=== PATIENT | male | born 1990 | race African-American/Black ===

== ENCOUNTER 2018-06-27 08:14 | Emergency (ER) | payer OTHER ==
[~2018-06-27] VITALS: Ht 185.4 cm; Wt 78.0 kg
[~2018-06-27 08:14] MED LIST: PRON INH
[2018-06-27 08:20] VITALS: BP 124/67
--- NOTE | 2018-06-27 08:20 | NUR ---
PATIENT AMBULATED TO BED 11 AT THIS TIME.
--- NOTE | 2018-06-27 08:23 | NUR ---
PATIENT PRESENTS TO ED WITH THE CHIEF C/O GENERALIZED BODY PAIN AND HEADACHE STARTED COUPLE DAYS AGO. DENIES N/V. HAS WATERY DIARRHEA X4; SKIN IS PINK/WARM/DRY; AAOX4 WITH EVEN AND STEADY GAIT; PT DENIES ANY FEVER, CP, SOB, OR COUGH AT THIS TIME; PATIENT STATES PAIN OF 10/10 AT THIS TIME; VSS; PATIENT POSITIONED FOR COMFORT; HOB ELEVATED; BEDRAILS UP X2; BED DOWN. ER MD MADE AWARE OF PT STATUS.
--- NOTE | 2018-06-27 08:25 | NUR ---
PT BEING SEEN BY DR. SÁNCHEZ AT THIS TIME.
[2018-06-27] MEDS ORDERED: ONDANSETRON 4 MG ODT PO ONE (08:30)
[2018-06-27] MEDS ORDERED: KETOROLAC 60 MG/2 ML VIAL IM ONE (08:30)
--- NOTE | 2018-06-27 09:15 | NUR ---
PT APPEARS TO BE RELAXED, RESTING IN BED. VERBALIZED PAIN DECREASED TO 5/10.
--- NOTE | 2018-06-27 09:36 | NUR ---
Patient discharged with v/s stable. Written and verbal after care instructions given and explained. Patient alert, oriented and verbalized understanding of instructions. Ambulatory with steady gait. All questions addressed prior to discharge. ID band removed. Patient advised to follow up with PMD. Rx of ZOFRAN, MOTRIN, AND CIPRO given. Patient educated on indication of medication including possible reaction and side effects. Opportunity to ask questions provided and answered.
[2018-06-27 09:37] VITALS: BP 111/59
== END 2018-06-27 09:36 | disposition home or self-care (01) ==
LOC: MED 08:14
DX: R11.2 Nausea with vomiting, unspecified (principal); R19.7 Diarrhea, unspecified; M79.10 Myalgia, unspecified site; J45.909 Unspecified asthma, uncomplicated; F17.200 Nicotine dependence, unspecified, uncomplicated; Z91.018 Allergy to other foods; Z79.899 Other long term (current) drug therapy
CPT/HCPCS: 96372; 99283; J1885; Q0162

== ENCOUNTER 2019-07-22 06:54 | Emergency (ER) | payer OTHER ==
[~2019-07-22] VITALS: Ht 185.4 cm; Wt 80.7 kg
[2019-07-22 07:00] VITALS: BP 132/64
--- NOTE | 2019-07-22 07:06 | NUR ---
PT AMBULATED BED #9
--- NOTE | 2019-07-22 07:15 | NUR ---
28 y/o m presents to ER c/o abdominal pain. Pt seen at urgent care yesterday around 1800 and referred to ER to r/o appendicitis. A&O x4. Respirations even and unlabored. Pain is located in epigastric area. Current pain level 5/10, constant, cramping pain. Bowel sounds active x 4 quadrants. Last BM 07/21/18. Pt also c/o bilateral arm pain. Denies any trauma or injury. Awaiting for ERMD to evaluate pt. NKA No med hx
--- NOTE | 2019-07-22 07:56 | NUR ---
Pt ambulated to restroom to provide urine sample.
--- NOTE | 2019-07-22 08:02 | NUR ---
Urine sample sent to lab.
[2019-07-22 08:20] LABS: APPEARANCE,URINE CLOUDY (CLEAR); BILIRUBIN,URINE 1+ (NEGATIVE); BLOOD, URINE 3+ (NEGATIVE); COLOR,URINE YELLOW (YELLOW); LEUKOCYTE ESTERASE ,URINE 2+ (NEGATIVE); NITRITE, URINE NEGATIVE (NEGATIVE); UGLUCOSE NEGATIVE (NEGATIVE)
[2019-07-22 08:40] LABS: RBC,URINE 11-20 (MOD) /HPF (0-5)
[2019-07-22 08:41] LABS: WBC,URINE 80-100 /HPF (0-5)
--- NOTE | 2019-07-22 09:00 | NUR ---
Pt resting in bed with eyes open. Awake and Alert. Respirations even and unlabored.
[2019-07-22] MEDS: AZITHROMYCIN 1,000 MG in DEXTROSE 5% 500 ML IV ONE (09:15)
[2019-07-22] MEDS ORDERED: AZITHROMYCIN 500 MG INJ VIAL IV ONE (09:35)
[2019-07-22] MEDS ORDERED: cefTRIAXone 2,000 MG VIAL ONE (09:35)
[2019-07-22] MEDS: NACL 0.9% 1,000 ML IV ONE (09:48)
[2019-07-22] MEDS: cefTRIAXone 2,000 MG in DEXTROSE 5% 100 ML IV ONE (09:54)
--- NOTE | 2019-07-22 10:20 | NUR ---
Pt resting in bed. A&O x4. Vital Signs Stable. Will continue to monitor.
--- NOTE | 2019-07-22 11:15 | NUR ---
PT REFUSING IV AZITHROMYCIN. PT REQUESTING PO PILLS INSTEAD. DR. JONES MADE AWARE.
[2019-07-22] MEDS: AZITHROMYCIN 250 MG TAB PO ONE (11:54)
[2019-07-22 12:19] VITALS: BP 102/48
--- NOTE | 2019-07-22 12:19 | NUR ---
Patient discharged by Dr. Mccarthy with v/s stable. Written and verbal after care instructions given and explained. Patient alert, oriented and verbalized understanding of instructions. Ambulatory with steady gait. All questions addressed prior to discharge. ID band removed. Patient advised to follow up with PMD. Rx of Levaquin 500mg was given. Patient educated on indication of medication including possible reaction and side effects. Opportunity to ask questions provided and answered.
[2019-07-24 06:07] LABS: CHLAMYDIA TRACHOMATIS AMP DNA Negative (Negative)
== END 2019-07-22 12:20 | disposition home or self-care (01) ==
LOC: MED 06:54
DX: N39.0 Urinary tract infection, site not specified (principal); J45.909 Unspecified asthma, uncomplicated; Z79.51 Long term (current) use of inhaled steroids
CPT/HCPCS: 36415; 81001; 87086; 87186; 87491; 96365; 99283; J0456; J0696; J7030; J7060

== ENCOUNTER 2019-11-10 10:41 | Emergency (ER) | payer OTHER ==
[~2019-11-10] VITALS: Ht 195.6 cm; Wt 86.2 kg
[2019-11-10 10:47] VITALS: BP 115/73
--- NOTE | 2019-11-10 10:53 | NUR ---
Patient ambulated to bed 6. RN evaluating patient at bedside.
--- NOTE | 2019-11-10 10:57 | NUR ---
28 Y/O MALE FROM HOME C/O ABSCESS TO COCCYX X 6 DAYS. PT STATES HE HAD ABSCESS DRAINED FROM COCCYX LAST YEAR. INCREASED PAIN WHEN SITTING. 5/10 CONSTANT ACHING PAIN. NOTICABLE ABSCESS, NO OPEN WOUND. STATES HE TOOK IBUPROFEN AT 0900 WITH MINIMAL PAIN RELIEF. PT LAYING IN PRONE POSITION FOR COMFORT. MEDHX: ASTHMA ALLERGIES: NKA
--- NOTE | 2019-11-10 11:09 | NUR ---
Dr. Orantes is evaluating the patient at bedside.
--- NOTE | 2019-11-10 11:09 | NUR ---
DR SÁNCHEZ EXAMINING PT
[2019-11-10] MEDS ORDERED: LIDOCAINE MPF 1% 10 MG/ML VIAL INJ ONE (11:15)
--- NOTE | 2019-11-10 11:20 | NUR ---
LIDOCAINE PLACED AT BEDSIDE FOR DR SÁNCHEZ
--- NOTE | 2019-11-10 11:45 | NUR ---
Dr. Orantes at bedside for incision and drainage of abscess.
--- NOTE | 2019-11-10 12:01 | NUR ---
PT STATES DECREASE IN PAIN AFTER DRAINAGE
[2019-11-10 12:15] VITALS: BP 117/77
--- NOTE | 2019-11-10 12:16 | NUR ---
Patient discharged with v/s stable. Written and verbal after care instructions given and explained. Patient alert, oriented and verbalized understanding of instructions. Ambulatory with steady gait. All questions addressed prior to discharge. ID band removed. Patient advised to follow up with PMD. Rx of MOTRIN, KEFLEX, NORCO given. Patient educated on indication of medication including possible reaction and side effects. Opportunity to ask questions provided and answered.
== END 2019-11-10 12:16 | disposition home or self-care (01) ==
LOC: MED 10:41
DX: L02.31 Cutaneous abscess of buttock (principal); F17.210 Nicotine dependence, cigarettes, uncomplicated; J45.909 Unspecified asthma, uncomplicated; Z79.899 Other long term (current) drug therapy
CPT/HCPCS: 10060; 99283; J2001

== ENCOUNTER 2019-11-18 09:15 | Emergency (ER) | payer OTHER ==
[~2019-11-18] VITALS: Ht 188 cm; Wt 81.6 kg
[2019-11-18 09:24] VITALS: BP 137/87
--- NOTE | 2019-11-18 09:27 | NUR ---
Patient ambulated to bed 2. RN evaluating patient at bedside.
--- NOTE | 2019-11-18 10:00 | NUR ---
RECHECK FOR PILONIDAL CYST DRAINAGE 11/09/09. PT STATES STILL TAKING ANTIBIOTICS KEFLEX. SITE APPEARS TO HAVE SIGNIFICANT DRAINAGE, SITE IS PACKED WITH STRIPS. PT DENIES PAIN UNLESS SITE IS TOUCHED. HR 115 UPON TRIAGE. PT ALERT AND AWAKE, AMBULATORY. HX: NONE RX: NONE
--- NOTE | 2019-11-18 10:01 | NUR ---
ABSESS WOUND CHECK TO PTS LOWER BACK, INNER BUTTOCK REGION
--- NOTE | 2019-11-18 11:07 | NUR ---
BETADINE, PACKING STRIPS, STERILE WATER, AND 60 CC SYRINGE AT BEDSIDE
--- NOTE | 2019-11-18 11:50 | NUR ---
PT STATES PAIN 7/10 TO SITE AFTER EXAMINING AND REMOVING PACKING
[2019-11-18] MEDS: HYDROcodone/APAP 5/325 MG 1 TAB TAB PO ONE (11:57)
--- NOTE | 2019-11-18 11:57 | NUR ---
NORCO PO ADMINISTERED, PT STATES HE IS NOT DRIVING HIMSELF HOME
[2019-11-18 13:15] VITALS: BP 112/58
--- NOTE | 2019-11-18 13:16 | NUR ---
Patient discharged with v/s stable. Written and verbal after care instructions given and explained. Patient alert, oriented and verbalized understanding of instructions. Ambulatory with steady gait. All questions addressed prior to discharge. ID band removed. Patient advised to follow up with PMD. Rx of bactrim, keflex & ibuprofen given. Patient educated on indication of medication including possible reaction and side effects. Opportunity to ask questions provided and answered.
== END 2019-11-18 13:16 | disposition home or self-care (01) ==
LOC: MED 09:15
DX: L05.91 Pilonidal cyst without abscess (principal); J45.909 Unspecified asthma, uncomplicated; Z79.899 Other long term (current) drug therapy
CPT/HCPCS: 99283